=== PATIENT | female | born 1965 | race Two or more races ===

== ENCOUNTER 2016-12-17 12:01 | Inpatient (IN) | payer MEDICAID ==
[~2016-12-17] VITALS: Ht 162.6 cm; Wt 53.5 kg
[2016-12-17] VITALS (7 sets, daily range): BP systolic 30–151; BP diastolic 10–96
[2016-12-17] MEDS ORDERED: IV NS 0.9% 1,000 ML ONE (12:04)
[2016-12-17] MEDS ORDERED: IV SET PRIMARY 1 EA INFUS.SET MC ONE (12:04)
--- NOTE | 2016-12-17 12:04 | NUR ---
CALLED RT FOR INTUBATION
--- NOTE | 2016-12-17 12:04 | NUR ---
BLOOD AND CULTURES DRAWN FROM PORT WITH 10CC WASTE AND SENT TO LAB
--- NOTE | 2016-12-17 12:09 | NUR ---
CALLED NURSING BUTTER MAKER FOR ICU BED
--- NOTE | 2016-12-17 12:09 | NUR ---
DR. HERMAN AND RESPIRATORY THERAPIST AT BEDSIDE FOR RAPID SEQUENCE INTUBATION VERBAL ORDER FOR ETOMIDATE 20MG IVP TO L HAND G 18 FOR RSI VERBAL ORDER FOR ROCURONEUM 100MG IVP TO L HAND G 18 FOR RSI
--- NOTE | 2016-12-17 12:10 | NUR ---
PT INTUBATED BY DR. HERMAN USING 7.5 ET TUBE AT 23CM LIP LINE. POSITIVE CO2 COLOR CHANGE NOTED WITH BILATERAL BREATH SOUNDS RESPIRATORY THERAPIST AT BEDSIDE TO PLACE PT ON VENTILATOR WITH SETTINGS: AC:16 TV:450 PEEP:5 FIO2:100%
[2016-12-17] MEDS ORDERED: IV SET PRIMARY PUMP SET 1 EA INFUS.SET MC ONE ×4 (12:17→13:36)
[2016-12-17] MEDS ORDERED: PROPOFOL 100 ML IV ONE ×2 (12:17→12:30)
[2016-12-17] MEDS ORDERED: IV NS 0.9% 250 ML IV ONE (12:24)
[2016-12-17] MEDS ORDERED: CT SWABBABLE VALVE TRANS SET 1 EA INFUS.SET MC ONE (12:24)
[2016-12-17] MEDS ORDERED: IOHEXOL-350 100 ML VIAL IV ONE (12:24)
[2016-12-17 12:26] LABS: BASOPHILS # (AUTO) 0.2 /CMM (0.0-0.2); BASOPHILS % (AUTO) 2.4 % (0.0-2.0); EOSINOPHILS % (AUTO) 0.3 % (0.0-6.0); HEMATOCRIT 33 % (33-45); HEMOGLOBIN 11.3 g/dL (11.5-14.8); LYMPHOCYTES # (AUTO) 1.3 /CMM (0.8-4.8); LYMPHOCYTES % (AUTO) 16.1 % (20.0-44.0); MEAN CORPUSCULAR HEMOGLOBIN 32 PG (26.0-33.0); MEAN CORPUSCULAR HGB CONC 34 g/dl (31.0-36.0); MEAN CORPUSCULAR VOLUME 94 fL (82-100); MONOCYTES # (AUTO) 0.6 /CMM (0.1-1.30); MONOCYTES % (AUTO) 7.2 % (2.0-12.0); NEUTROPHILS # (AUTO) 6.2 /CMM (1.8-8.9); PLATELET COUNT (AUTO) 72 /CMM (150-450); RDW COEFFICIENT OF VARIATION 17.5 (11.5-15.0); RED BLOOD CELL COUNT(AUTO) 3.52 MIL/uL (4.0-5.2); WHITE BLOOD COUNT (AUTO) 8.3 K/uL (4.3-11.0)
--- NOTE | 2016-12-17 12:28 | NUR ---
PT TAKEN TO CT VIA [facility] ACLS PROTOCOL WITH RT AND RN
[2016-12-17] MEDS ORDERED: CEFEPIME 1 GM in IV D5W 50 ML IV ONE (12:30)
[2016-12-17] MEDS ORDERED: ETOMIDATE 2 MG/ML VIAL IV ONE (12:30)
[2016-12-17] MEDS ORDERED: VANCOMYCIN 1 GM in IV D5W 250 ML IV ONE (12:30)
[2016-12-17] MEDS ORDERED: ROCURONIUM BROMIDE 100 MG/10 ML VIAL IV ONE (12:30)
[2016-12-17] MEDS ORDERED: IV NS 0.9% 1,000 ML BAG IV ONE (12:30)
[2016-12-17 12:44] LABS: ALANINE AMINOTRANSFERASE 50 U/L (12-78); ALBUMIN 2.9 g/dL (3.4-5.0); ALKALINE PHOSPHATASE 224 U/L (46-116); ASPARTATE AMINOTRANSFERASE 36 U/L (15-37); BILIRUBIN,DIRECT 0.8 mg/dL (0.0-0.2); BILIRUBIN,TOTAL 2.3 mg/dL (0.2-1.0); CARBON DIOXIDE 13 mmol/L (21-32); CHLORIDE 108 mmol/L (98-107); CREATININE 2.2 mg/dL (0.6-1.3); POTASSIUM 5.2 mmol/L (3.5-5.1); SODIUM SERUM 135 mmol/L (136-145); UREA NITROGEN, BLOOD 31 mg/dL (7-18)
[2016-12-17 12:45] LABS: GLUCOSE 520 mg/dL (74-106)
[2016-12-17 12:47] LABS: TROPONIN I 0.025 ng/mL (0.00-0.056)
[2016-12-17] MEDS ORDERED: IV NS 0.9% 500 ML IV ONE (12:55)
[2016-12-17 12:57] LABS: INR 1.29 (0.87-1.13); PROTHROMBIN TIME 13.6 SECS (9.5-12.7)
[2016-12-17 12:58] LABS: BAND % (MANUAL) 9 % (0.0-5.0); LYMPHOCYTES % (MANUAL) 10 % (16-48); MONOCYTES % (MANUAL) 3 % (0-11.0); NEUTROPHILS % (MANUAL) 78 (42-76)
[2016-12-17] MEDS ORDERED: CALCITONIN,SALMON INJ 400 UNITS/2 ML VIAL IM STA (12:58)
--- NOTE | 2016-12-17 13:02 | NUR ---
PAGED PATIENT'S ONCOLOGIST DR LUBNA MARTINS
[2016-12-17] MEDS ORDERED: PAMIDRONATE 90 MG in IV NS 0.9% 500 ML IV ONE (13:30)
[2016-12-17] MEDS ORDERED: INSULIN REGULAR, HUMAN 100 UNIT in IV NS 0.9% 99 ML IV PRN ×2 (13:30)
[2016-12-17 13:31] LABS: ABG BASE EXCESS -14.4 mmol/L; ABG OXYGEN SATURATION 98.4 % (92.0-98.5); ABG PCO2 31.8 mmHg (35.0-45.0); ABG PH 7.206 (7.350-7.450); ABG PO2 217.1 mmHg (75.0-100.0); AaDO2 175.7 mmHg; COHb 0.3 % (0.5-1.5); MetHb 0.8 % (0.0-1.5); O2Hb 97.3 % (94.0-97.0); PEEP,BG 5 cm H2O; SITE, ABG Right Radial; VENT MODE, BG A/C; VT, ABG 450 mL
[2016-12-17 13:32] LABS: APPEARANCE,URINE SL CLOUDY (CLEAR); BILIRUBIN,URINE NEGATIVE (NEGATIVE); BLOOD, URINE TRACE Ery/uL (NEGATIVE); COLOR,URINE YELLOW (YELLOW); KETONES,URINE NEGATIVE (NEGATIVE); LEUKOCYTE ESTERASE ,URINE NEGATIVE (NEGATIVE); NITRITE, URINE NEGATIVE (NEGATIVE); PROTEIN,URINE NEGATIVE (NEGATIVE); UGLUCOSE 3+ mg/dL (NEGATIVE); UROBILINOGEN,URINE 0.2 EU/dL (0.2)
[2016-12-17 13:35] LABS: BACTERIA,URINE 1+ /HPF (None Seen); MUCUS,URINE Few /LPF (None Seen); URINE AMORPHOUS URATE Few /HPF (None Seen); WBC,URINE 0-2 /HPF (0-3)
--- NOTE | 2016-12-17 13:39 | NUR ---
PT ASSIGNED ICU 258
--- NOTE | 2016-12-17 13:44 | NUR ---
PAGED CLIENT SERVICE ASSOCIATE FOR [facility] DR FOSTER
--- NOTE | 2016-12-17 13:48 | NUR ---
REPORT GIVEN TO CRYSTAL RENNER FOR ICU [id number]
--- NOTE | 2016-12-17 13:57 | NUR ---
REPAGED DR FOSTER RATE CLERK FOR EPIC
--- NOTE | 2016-12-17 14:02 | NUR ---
PAGED JACK WARE FOR PALLIATIVE CARE
[2016-12-17] MEDS ORDERED: MORPHINE SULFATE INJ 4 MG/ML DISP.SYRIN IV STA (14:14)
--- NOTE | 2016-12-17 14:15 | NUR ---
LEFT A MESSAGE WITH [facility] FOR LAST RITES
--- NOTE | 2016-12-17 14:15 | NUR ---
LEFT A MESSAGE WITH [facility] FOR LAST RITES
--- NOTE | 2016-12-17 14:21 | NUR ---
RECEIVED CALL FROM JOHN AT [facility] FATHER ANTHONY IS CURRENTLY CONDUCTING MASS UNTIL 3PM AND WILL NOT BE ABLE TO COME DOWN UNTIL AFTER MASS IS COMPLETED. SHE SAID SHE CANNOT MAKE ANY GUARANTEES BUT WILL CALL BACK AFTER 3
--- NOTE | 2016-12-17 14:23 | NUR ---
MULTIPLE D/W , MOTHER OF PT, SIBLINGS, CHILDREN AND DR FOSTER. DECISION MADE FOR EVANGELICAL CEREMONY THEN EXTUBATION AND COMFORT CARE. THIRTY FAMILY MEMBERS GATHERED AROUND BEDSIDE WAITING FOR
[2016-12-17] MEDS ORDERED: ZOLPIDEM TARTRATE 5 MG TABLET PO PRN (14:30)
[2016-12-17] MEDS ORDERED: ACETAMINOPHEN 325 MG TABLET PO PRN (14:30)
[2016-12-17] MEDS ORDERED: HYDROCODONE/APAP 5/325MG 1 EACH TABLET PO PRN (14:30)
[2016-12-17] MEDS ORDERED: MAGNESIUM HYDROXIDE 30 ML UDC PO PRN (14:30)
[2016-12-17] MEDS ORDERED: MAG HYDROX/AL HYDROX/SIMETH 30 ML UDC PO PRN (14:30)
[2016-12-17] MEDS ORDERED: Z GUARD REMEDY 2 OZ OINT TP PRN (14:30)
[2016-12-17] MEDS ORDERED: ONDANSETRON HCL/PF 4 MG/2 ML VIAL IVP PRN (14:30)
--- NOTE | 2016-12-17 14:32 | NUR ---
TRANSFER PT TO ICU VIA ACLS PROTOCOL WITH RT AND ERT .
--- NOTE | 2016-12-17 14:34 | NUR ---
[facility] ANSWERING SERVICE PAGED FATHER GINGER FOR CALL BACK
--- NOTE | 2016-12-17 15:15 | NUR ---
MADE ANOTHER ATTEMPT TO REACH FATHER GINGER WITH [facility]
[2016-12-17] MEDS ORDERED: DC PROPOFOL WHEN EXTUBATED XX PRN (15:45)
[2016-12-17] MEDS: MORPHINE SULFATE INJ 4 MG/ML DISP.SYRIN IV PRN ×2 (15:54→16:52)
--- NOTE | 2016-12-17 15:59 | NUR ---
FAMILYS AT THE BEDSIDE. PT MEDICATED WITH MORPHINE 4 MG IV.
[2016-12-17] MEDS ORDERED: LORAZEPAM INJ 2 MG/ML VIAL IV PRN (16:00)
--- NOTE | 2016-12-17 16:21 | NUR ---
DR FOSTER, FAMILY AND FIBERGLASS TECHNICIAN AT BEDSIDE. COMFORT MEASURES ONLY AND WILL EXTUBATE FAMILY DIRECTS AFTER BAPTIST CEREMONY COMPLETED.
--- NOTE | 2016-12-17 16:48 | NUR ---
RT PER MD ORDER PATIENT COMPASSIONATELY EXTUBATED. FAMILY AT BEDSIDE.
--- NOTE | 2016-12-17 17:00 | NUR ---
PT PRONOUNCED . DNI/DNR STATUS. COMFORT FOCUSSED CARE. NO RESPIRATORY EFFORT. ASYSTOLE ON MONITOR. NO PALPABLE PULSES. NO OBTAINABLE BP. PUPILS FIXED AND DILATED. DR FOSTER HERE IN ICU
--- NOTE | 2016-12-17 18:00 | NUR ---
POST-MORTEM CARE PREFORMED, BODY TAKEN TO MORTUARY BY SECURITY AND JOB, RN [employer] AND CORONED NOTIFIED BY [employer] CHARGE.
[2016-12-18] MEDS ORDERED: PANTOPRAZOLE 40 MG TABLET.DR PO SCH (07:30)
== END 2016-12-17 17:00 | disposition expired | DRG 133 ==
LOC: ER 12:03 → ICU 13:51
PROVIDERS: ADMIT Family Medicine; ATTEND Family Medicine
PROC: 0BH17EZ Insertion of Endotracheal Airway into Trachea, Via Natural or Artificial Opening (ICD-10-PCS; principal; 2016-12-17)
PROC: 5A1935Z Respiratory Ventilation, Less than 24 Consecutive Hours (ICD-10-PCS; principal; 2016-12-17)
DX: J96.01 Acute respiratory failure with hypoxia (principal); N17.9 Acute kidney failure, unspecified; E44.0 Moderate protein-calorie malnutrition; Z51.5 Encounter for palliative care; C78.00 Secondary malignant neoplasm of unspecified lung; E87.2 Acidosis; C50.919 Malignant neoplasm of unspecified site of unspecified female breast; E83.52 Hypercalcemia; E87.1 Hypo-osmolality and hyponatremia; E87.5 Hyperkalemia; Z90.12 Acquired absence of left breast and nipple; N18.9 Chronic kidney disease, unspecified; Z66 Do not resuscitate; J98.11 Atelectasis; Z68.20 Body mass index [BMI] 20.0-20.9, adult
CPT/HCPCS: 36415; 36600; 70450-TC; 71010-TC; 80048-TC; 80076-TC; 81000-TC; 82962-TC; 83605-TC; 84484-TC; 85025-TC; 85730-TC; 87040-TC; 87081-TC; 87086-TC; 94002-TC; 94799-TC; A4606; J0630; J0692; J1815; J2270; J2430; J3370; J3490; J7030; J7040; J7050; J7060; Q9967; Z7610